=== PATIENT | female | born 1980 | race Hispanic/Latino ===

== ENCOUNTER 2017-10-12 15:31 | Emergency (ER) | payer OTHER ==
[2017-10-12 15:43] VITALS: O2SAT 99
[2017-10-12 16:41] LABS: BASO % 0.4 % (0.0-2.0); EOS # 0.2 K/uL (0.0-0.7); EOS % 1.5 % (0.0-4.0); HEMOGLOBIN 13.7 g/dL (12.0-16.0); LYMPH # 1.6 K/uL (1.0-4.3); LYMPH % 16.4 % (20.0-40.0); MEAN CELL VOLUME 88.8 fl (81.0-99.0); MEAN CORPUSCULAR HEMOGLOBIN 29.5 pg (27.0-31.0); MEAN CORPUSCULAR HGB CONC 33.3 g/dL (33.0-37.0); MEAN PLATELET VOLUME 9.2 fl (7.2-11.7); MONO # 0.9 K/uL (0.0-0.8); MONO % 9.6 % (0.0-10.0); NEUT # 7.1 K/uL (1.8-7.0); NEUT % 72.1 % (50.0-75.0); NRBC % 0.1 % (0.0-0.0); RBC 4.63 Mil/uL (3.80-5.20); WHITE BLOOD COUNT 9.8 K/uL (4.8-10.8)
--- NOTE | 2017-10-12 16:45 | ED PDOC ---
HPI: Chest Pain History Per: Patient History/Exam Limitations: no limitations Onset/Duration Of Symptoms: Days Current Symptoms Are (Timing): Still Present Pain Scale Rating Of: 4 Quality: Dull Exacerbating Factors: Deep Breathing Additional History Per: Family <Chely Kirk - Last Filed: 10/12/17 19:45> <Yoli Merino - Last Filed: 10/12/17 23:01> Time Seen by Provider: 10/12/17 15:46 Chief Complaint (Nursing): Chest Pain Additional Complaint(s): HPI: 37 y/o female with an unremarkable PMHx, presents to the ED with c/o chest pain of dull quality, 4/10 at this time, that radiates to the left side of her back and left lower side of rib cage, is constant, the pain increases with deep breathing, patient states that the pain started Monday in the evening and it was more like a mild discomfort and she was feeling tired, then on Monday the pain was increased and constant until now, she states that the pain has improved today compared to previous days, she also has been feeling more tired than usually and with some SOB while performing her regular activities, she adds she feels some sore/dry feeling in her throat, she denies fever, chills, abdominal pain, palpitations, cough, N/V/D, or dysuria. Patient denies recent traveling long distance or airplane traveling, denies taking control pills. Patient lives with and he currently has cold like symptoms. PMD: Dr Debbie Davis (Chely Kirk) Supervising Attending Note - Supervising Attending Note The Documented history was done by the: Physician Plastics Plater, Attending Physician The documented physical exam was done by the: Physician Plastics Plater, Attending Physician - Attestation: I have personally seen and examined this patient.: Yes I have fully participated in the care of the patient.: Yes I have reviewed all pertinent clinical information: Yes <Yoli Merino - Last Filed: 10/12/17 23:01> Past Medical History Reviewed: Historical Data, Nursing Documentation, Vital Signs - Medical History PMH: No Chronic Diseases - Surgical History Surgical History: No Surg Hx - Family History Family History: States: Other Other Family History: Father of lung CA at 57 y/o - Living Arrangements Living Arrangements: With Family - Social History Current smoker - smoking cessation education provided: No Ex-Smoker (has not smoked in the last 12 months): No Alcohol: Social Drugs: Denies <Genaolive LanRodríguezwiliamdana - Last Filed: 10/12/17 19:45> <WilberYoli Mayo - Last Filed: 10/12/17 23:01> Vital Signs: Last Vital Signs Temp 98.9 F 10/12/17 19:39 Pulse 66 10/12/17 19:39 Resp 169 H 10/12/17 19:39 BP 117/68 10/12/17 19:39 Pulse Ox 99 10/12/17 19:46 - Home Medications Home Medications: Ambulatory Orders Medication Instructions Recorded Ibuprofen [Motrin Tab] 600 mg PO Q8 PRN #30 tab 10/12/17 - Allergies Allergies/Adverse Reactions: Allergies Allergy/AdvReac Type Severity Reaction Status Date / Time Penicillins Allergy ANAPHYLAXIS Verified 10/12/17 15:43 GIANFRANCO Risk Score for UA/NSTEMI - GIANFRANCO Risk Score Age > 64: NO 3 or more CAD Risk Factors: NO Known CAD (Stenosis greater than 50%): NO Aspirin use in past 7 days: NO Severe Angina: NO EKG ST changes greater than 0.5mm: NO GIANFRANCO Score: 0 Risk %: 5% <Gena LanChely - Last Filed: 10/12/17 19:45> Curb-65 Severity Score - CURB-65 Severity Score Confusion: No Bun >19mg/dl (>7mmol/L): No Respiratory Rate greater than/equal to 30: No Systolic BP <90 or Diastolic BP less than/equal 60mmHg: No Age >64: No Curb-65 Score: 0 Percentage 30-day mortality: 0.6% <Genaolive LanRodríguezwiliamdana - Last Filed: 10/12/17 19:45> Wells Criteria for PE - Wells Criteria for Pulmonary Embolism Clinical Signs and Symptoms of DVT: No P.E is #1 Diagnosis, or Equally Likely: No Heart Rate >100: No Immobilization at least 3 days;Surgery previous 4 weeks: No Previous, objectively diagnosed PE or DVT: No Hemoptysis: No Malignancy w/treatment within 6 months, or palliative: No Total Score: 0 <Chely Kirk - Last Filed: 10/12/17 19:45> Review of Systems ROS Statement: Except As Marked, All Systems Reviewed And Found Negative <Chely Kirk - Last Filed: 10/12/17 19:45> Physical Exam - Reviewed Nursing Documentation Reviewed: Yes Vital Signs Reviewed: Yes - Physical Exam Appears: Positive for: No Acute Distress Head Exam: Positive for: ATRAUMATIC, NORMOCEPHALIC Skin: Positive for: Normal Color, Warm, Dry Eye Exam: Positive for: EOMI ENT: Positive for: Pharyngeal Erythema (mild erythematous pharynx) Neck: Positive for: Supple Cardiovascular/Chest: Positive for: Regular Rate, Rhythm, Chest Non Tender ( chest no tender to palpation, no reprod). Negative for: JVD, Murmur Respiratory: Positive for: Normal Breath Sounds (pleuritic pain present with deep breathing ) Gastrointestinal/Abdominal: Positive for: Bowel Sounds, Soft. Negative for: Tenderness Extremity: Negative for: Tenderness, Pedal Edema (Juan Antonio's negative) Neurologic/Psych: Positive for: Alert, Oriented <Chely Kirk - Last Filed: 10/12/17 19:45> - Laboratory Results Result Diagrams: 10/12/17 16:30 10/12/17 16:30 - ECG O2 Sat by Pulse Oximetry: 99 <Chely Kirk - Last Filed: 10/12/17 19:45> - Laboratory Results Result Diagrams: 10/12/17 16:30 10/12/17 16:30 <Yoli Merino - Last Filed: 10/12/17 23:01> Medical Decision Making <Chely Kirk - Last Filed: 10/12/17 19:45> <Yoli Merino - Last Filed: 10/12/17 23:01> Medical Decision Making: Patient labs reviewed and found unremarkable, CTA of chest done and unremarkable for PE or active disease. Patient already reports feeling better and symptoms improvement today at time of presentation to the ED compared to previous days at onset of symptoms. Patient is afebrile and VS wnl. -Decision is made to D/C patient home, instructions are given to f/u with her PCP within 1 to 2 days. -Instructions given to return to the ED if condition worsens. Scrpts: Ibuprofen 600 po Q8h as needed for pain. (Chely Kirk) Disposition - Disposition Disposition Time: 07:30 <Chely Kirk - Last Filed: 10/12/17 19:45> <Yoli Merino - Last Filed: 10/12/17 23:01> - Clinical Impression Clinical Impression: Pleurisy - Disposition Referrals: Lindsay Lewis [Medical Doctor] - 10/16/17 (FOLLOW UP WITH DR LEWIS NEXT WEEK FOR REEVALUATION) Condition: STABLE Prescriptions: Ibuprofen [Motrin Tab] 600 mg PO Q8 PRN #30 tab PRN Reason: Pain, Moderate (4-7) Instructions: Pleuritic Chest Pain Forms: [facility] (Yi)
--- NOTE | 2017-10-12 16:50 | RAD ---
Date of service: 10/12/2017 HISTORY: chest pain pleuritic sob COMPARISON: No prior. TECHNIQUE: Chest PA and lateral FINDINGS: LUNGS: No consolidation. PLEURA: No pneumothorax. Blunting of left costophrenic angle of unknown chronicity is noted. A small left pleural effusion there is compatible with this. Left costophrenic angle pleural reaction thickening can also simulate this. CARDIOVASCULAR: Normal. OSSEOUS STRUCTURES: No significant abnormalities. VISUALIZED UPPER ABDOMEN: Normal. OTHER FINDINGS: None. IMPRESSION: The findings the left costophrenic angle consistent with a small left pleural effusion and/or pleural thickening- the 3rd a history is compatible with this- assuming it is left-sided.
[2017-10-12 16:52] LABS: ALB/GLOB RATIO 1.3 (1.0-2.1); ALBUMIN 4.6 g/dL (3.5-5.0); CALCIUM 9.1 mg/dL (8.4-10.2); GFR NON-AFRICAN AMERICAN > 60
[2017-10-12 16:55] LABS: ALT/SGPT 23 U/L (9-52); AST/SGOT 27 U/L (14-36); BLOOD UREA NITROGEN 9 mg/dl (7-17)
[2017-10-12] MEDS ORDERED: Sodium Chloride 0.9% 1,000 ML IV STA (17:44)
[2017-10-12] MEDS ORDERED: Sodium Chloride 0.9% 50 ML IV ONE (18:05)
[2017-10-12] MEDS ORDERED: Iodixanol 320 MG/ML 100 ML BOTTLE IV ONE (18:05)
--- NOTE | 2017-10-12 18:42 | CT ---
Date of service: 10/12/2017 PROCEDURE: CT Chest with contrast (Pulmonary Angiogram) HISTORY: LEFT sided pleuritic pain and sob and blunted angl COMPARISON: None available. TECHNIQUE: Axial computed tomography images were obtained of the chest in the pulmonary arterial phase of enhancement. Coronal and sagittal reformatted images were created and reviewed. Intravenous contrast dose: 80 mL Visipaque 320 Radiation dose: Total exam DLP = 190.8 mGy-cm. This CT exam was performed using one or more of the following dose reduction techniques: Automated exposure control, adjustment of the mA and/or kV according to patient size, and/or use of iterative reconstruction technique. FINDINGS: PULMONARY ARTERIES: Unremarkable. No pulmonary embolism. AORTA: No acute findings. No thoracic aortic aneurysm. LUNGS: Unremarkable. No nodule, mass or pulmonary consolidation. PLEURAL SPACES: Unremarkable. No effusion or pneumothorax. HEART: Unremarkable. No cardiomegaly. No significant pericardial effusion. LYMPH NODES: No lymphadenopathy. BONES, CHEST WALL: Unremarkable. No fracture or destructive lesion OTHER FINDINGS: Unremarkable. IMPRESSION: Unremarkable CT pulmonary angiogram. No pulmonary embolus.
[2017-10-12 19:40] VITALS: BP 117/68; PULSE 66; RESP 169; TEMP 98.9
--- NOTE | 2017-10-14 20:52 | CARD ---
APPROVED REPORT Date of service: 10/12/2017 EKG Measurement Heart [id number] <Conclusion> Normal sinus rhythm Normal ECG
== END 2017-10-12 19:39 | disposition home or self-care (01) ==
LOC: H.ER 15:31
DX: R09.1 Pleurisy (principal); Z88.0 Allergy status to penicillin
CPT/HCPCS: 71046; 71275; 80053; 81025; 82550; 84484; 85025; 85378; 87040; 93005; 99284; J7030; Q9967